=== PATIENT | female | born 1950 | race Caucasian/White ===

== ENCOUNTER 2023-12-17 07:36 | Day surgery (SDC) | payer MEDICARE ==
[~2023-12-17] VITALS: Ht 160 cm; Wt 78.0 kg
[~2023-12-17 07:36] MED LIST: ALBU8.5H INH; ATOR80TA59 PO; BSS IRR 500ML/OMIDRIA 4ML IRR BAG (OR ONLY) As Ordered ONE; CEFUROXIME 1MG/0.1ML INTRACAMERAL INJ As Ordered ONE; ECOT81TA5 PO; FAMO20TA PO; INSU100V6 SQ; LANS30CA93 PO; LIDOCAINE 1% SDV 5ML VIAL As Ordered ONE; LOSA100T46 PO; PROPARACAINE 0.5% OPHTH SOL 15ML OS ONE; SERT50TA29 PO
[2023-12-17] MEDS: TROPICAMIDE 1% OPHTH SOLN 15ML OS SCH ×2 (08:31→08:35)
[2023-12-17] MEDS: CYCLOPENTOLATE 1% OPHTH SOLN 2ML BTL OS SCH ×2 (08:31→08:35)
[2023-12-17] MEDS: PHENYLEPHRINE 2.5% OPHTH SOL 2ML OS SCH ×2 (08:31→08:35)
[2023-12-17] MEDS: OFLOXACIN 0.3 % (OCUFLOX) OPTH SOL 5ML OS SCH ×2 (08:32→08:35)
[2023-12-17] MEDS ORDERED: MIDAZOLAM INJ 2MG/2ML VIAL As Ordered ONE (09:22)
[2023-12-17] MEDS ORDERED: fentaNYL 100 MCG/2 ML INJECTION As Ordered ONE (09:22)
[2023-12-17 09:39] VITALS: BP 109/53; TEMP 97.2; O2SAT 96
== END 2023-12-17 09:50 | disposition home or self-care (01) ==
LOC: M SDC 07:36
PROVIDERS: ATTEND Ophthalmology
DX: E11.36 Type 2 diabetes mellitus with diabetic cataract (principal); H25.12 Age-related nuclear cataract, left eye; J45.909 Unspecified asthma, uncomplicated; K21.9 Gastro-esophageal reflux disease without esophagitis; Z79.899 Other long term (current) drug therapy; Z79.82 Long term (current) use of aspirin; Z79.4 Long term (current) use of insulin
CPT/HCPCS: 66984; J0697; J1097; J2250; J3010; V2632